=== PATIENT | female | born 1990 | race Caucasian/White ===

== ENCOUNTER 2018-04-07 06:04 | Day surgery (SDC) | payer OTHER ==
[2018-04-07] MEDS ORDERED: ceFAZolin 2 GM/50 ML 2 GM/50 ML BAG IV ONE (06:32)
[2018-04-07 06:48] LABS: HCG UR QUAL NEGATIVE
[2018-04-07] MEDS ORDERED: LACTATED RINGERS 1,000 ML IV ONE (06:59)
--- NOTE | 2018-04-07 07:55 | ANESTHESIA ---
Pre-Anesthesia VS, & Labs - Diagnosis right knee meniscus tear - Procedure right knee meniscus debridement, arthroscopic surgery Vital Signs: Temp Pulse Resp BP Pulse Ox 36.4 C L 79 18 120/75 98 04/07/18 06:35 04/07/18 06:35 04/07/18 06:35 04/07/18 06:35 04/07/18 06:35 Height 6 ft Weight (kg) 96.9 kg - NPO >8 hours - Is Patient ?: No Home Medications and Allergies Home Medications: Ambulatory Orders Norethindrone [Ortho Micronor] 0.35 mg PO 03/30/18 Pnv95/Ferrous Fumarate/FA [ Formula] 1 each PO DAILY 03/30/18 Norethindrone [Ortho Micronor] 0.35 mg PO 03/30/18 Pnv95/Ferrous Fumarate/FA [ Formula] 1 each PO DAILY 03/30/18 Allergies/Adverse Reactions: Allergies Allergy/AdvReac Type Severity Reaction Status Date / Time measles, mumps, and rubella Allergy Itching Verified 03/30/18 15:24 vaccine Anes History & Medical History - Anesthetic History Anesthesia Complications: reports: No previous complications - Medical History Cardiovascular: reports: None Pulmonary: reports: None Gastrointestinal: reports: None Urinary: reports: None Musculoskeletal: reports: Other Endocrine/Autoimmune: reports: None Skin: reports: Other Exam General: Alert Dental: WNL Mouth Opening: Greater than 4 Fingerbreadths Mallampati classification: I Thyromental Distance: greater than 6 cm Respiratory: Lungs clear Cardiovascular: Regular rate Mental/Cognitive Status: Alert/Oriented X3 Plan Anesthesia Type: General Consent for Procedure(s) Verified and Reviewed: Yes Code Status: Attempt Resuscitation ASA classification: 1-Healthy patient Is this case an emergency?: No
[2018-04-07] MEDS ORDERED: EPINEPHrine 1 MG/ML AMP ONE (07:56)
[2018-04-07] MEDS ORDERED: LIDOCAINE-MPF 2% 5 ML VIAL IM ONE (08:53)
[2018-04-07] MEDS ORDERED: HYDROmorphone 1 MG/ML CARPUJECT IVP ONE (08:53)
[2018-04-07] MEDS ORDERED: fentaNYL 100 MCG/2 ML VIAL IVP ONE (08:53)
[2018-04-07] MEDS ORDERED: DEXAMETHASONE 4 MG/ML VIAL IVP ONE (08:53)
[2018-04-07] MEDS ORDERED: PROPOFOL 200 MG/20 ML VIAL IVP ONE (08:53)
[2018-04-07] MEDS ORDERED: MIDAZOLAM 2 MG/2 ML VIAL IVP ONE (08:53)
[2018-04-07] MEDS ORDERED: ONDANSETRON 4 MG/2 ML VIAL IVP ONE (08:53)
[2018-04-07] MEDS ORDERED: KETOROLAC 30 MG/ML VIAL IVP ONE (08:53)
[2018-04-07] MEDS: BUPIVACAINE 0.25% PF 10 ML VIAL ONE ×2 (09:12→10:13)
[2018-04-07] MEDS ORDERED: oxyCODONE 5 MG TABLET PO PRN (10:33)
[2018-04-07] MEDS ORDERED: ONDANSETRON 4 MG/2 ML VIAL IVP PRN (10:33)
--- NOTE | 2018-04-07 10:37 | OPERATIVE REPORT ---
Operative Report - General Planned Procedure: Right knee arthroscopy, chondroplasty Pre-Op Diagnosis: Right knee lateral patellar chondromalacia Procedure Performed: Right Knee Arthroscopy, medial plica excision, shaving patellar chondroplasty, lateral femoral condyle chondroplasty, medial femoral condyle chondroplasty Post Op Diagnosis: Right knee patellar chondromalacia, focal femoral chondromalacia - Procedure Note Primary Surgeon: MADELIN CASTELLANO Estimated Blood Loss (mL): 5 - Other Other Information/Narrative: Indications for surgery this is a 27-year-old female who reports a history of right knee pain beginning in approximately 2014 or 2016She was scheduled for a right knee arthroscopy with shaving chondroplasty approximately 1 year ago however had to reschedule surgery due to . She recently delivered in late December 2017, and reports continued ongoing knee pain. She has failed nonoperative management. The risks, benefits, and alternatives were discussed. Risks included pain, bleeding, infection, damage to nearby structures, lack of symptom relief, implant complications, stiffness, need for further surgeries, DVT, PE, stroke, and even . He signed a written consent form. Right knee: 1. Patella: Diffuse grade 3 changes lateral facet, grade 2 to grade 3 changes medial facet 2. Trochlea: Normal 3. Medial Compartment: Focal 5 mm x 5 mm chondral lesion medial femoral condyle, medial meniscal root intact medial meniscus intact, tibial cartilage normal 4. Lateral Compartment: Focal 10 mm x 10 mm chondral lesion lateral femoral condyle, fraying of the lateral meniscal root, but intact. Lateral meniscus intact. Tibial cartilage normal 5. ACL and PCL: Normal COMPLICATIONS: none IMPLANTS: None Tourniquet: approximately 66 minutes, 250 mmHg, right thigh Procedure Details: The patient was met in the pre-operative hold area. We reviewed risks, benefits, and alternatives to surgery. Consent was signed. The patient verified the surgical site as the right knee. The patient then met with anesthesia and was brought back to the operating room. The patient was placed supine on the operating table. A general anesthetic was administered and LMA was placed. A well-padded tourniquet was placed on the right thigh. The right lower extremity was then prepped and draped in the usual sterile fashion. A surgical timeout was then performed. The correct patient, the correct procedure, and the correct surgical site were confirmed by everyone in the room. Perioperative antibiotics had been administered. After surgical timeout and administration of antibiotics the Escmarch was used to exsanguinate the right lower extremity and the tourniquet was raised. An 11 blade scalpel was used to make an anteromedial and anterolateral arthroscopic portal. A superolateral portal was made under direct visualization. The arthroscope was introduced into the knee and a diagnostic arthroscopy was performed with the above-stated findings. The arthroscopic sucker shaver was inserted into the knee and a chondroplasty of the medial femoral condyle, lateral femoral condyle, patella was performed. The cartilage was debrided to a stable rim. The arthroscopic instruments were then removed from the knee. The portals were closed with 3-0 Monocryl. 30 mL 0.25% Marcaine with epinephrine was injected into the periarticular soft tissues. The incisions were dressed with Xeroform gauze, cotton gauze, and an Quentin wrap. An ice pack was placed on the knee. The tourniquet was lowered. The surgical drapes were removed. The patient was awoken from anesthesia, extubated, transferred to the hospital bed, and taken to the PACU for recovery in good condition. Postoperative plan: 1. Discharge home from the same day surgery facility once the patient has met discharge criteria. 2. Advance weightbearing as tolerated, range of motion as tolerated, and wean from crutches as tolerated. 3. Return to clinic in 5-7 days for wound check. 4. Allow advancement of activities as tolerated with full clearance for all activities anticipated in 6-8 weeks postoperatively.
[2018-04-07 12:24] VITALS: BP 107/68
== END 2018-04-07 06:05 | disposition home or self-care (01) ==
LOC: SDS 06:04
PROVIDERS: ATTEND Orthopaedic Surgery
PROC: 0SBC4ZZ Excision of Right Knee Joint, Percutaneous Endoscopic Approach (ICD-10-PCS; principal; 2018-04-07 07:30)
DX: M94.261 Chondromalacia, right knee (principal)
CPT/HCPCS: 29877; 81025; A9270; J0690; J1170; J7120

== ENCOUNTER 2018-06-09 07:18 | Emergency (ER) | payer OTHER ==
[2018-06-09 07:28] VITALS: BP 141/82
--- NOTE | 2018-06-09 08:08 | ED Physician Documentation ---
PD HPI URI - Stated complaint Stated Complaint: FLU LIKE SYMPTOMS - Chief complaint Chief Complaint: Fever - History obtained from History obtained from: Patient - History of Present Illness Timing - onset: How many weeks ago (2) Timing duration: Weeks (2) Timing details: Gradual onset Pain level max: 3 Pain level now: 2 Associated symptoms: Fever, Chills, Nasal congestion, Rhinorrhea, Dry cough. No: Hemoptysis, Chest pain, Dyspnea, NVD Contributing factors: Sick contact Improves by: Rest Worsened by: Activity, Breathing Recently seen: Not recently seen - Additional information Additional information: 28-year-old female presents to the emergency department stating that she was sick approximately 2 weeks ago, lasted about a week, and then became ill again starting last night. Fevers, chills, coughing, nasal congestion. Nothing makes it better or worse. She does breast-feed her 4-1/2-month-old child Review of Systems Constitutional: reports: Fever, Chills Ears: denies: Ear pain Nose: reports: Rhinorrhea / runny nose, Congestion Skin: denies: Rash Musculoskeletal: denies: Neck pain, Back pain Neurologic: denies: Headache PD PAST MEDICAL HISTORY - Past Medical History Past Medical History: Yes Cardiovascular: None Respiratory: None Endocrine/Autoimmune: None GI: None : None HEENT: None Psych: None Musculoskeletal: Other Derm: Other - Past Surgical History Past Surgical History: Yes Ortho: Other - Present Medications Home Medications: Ambulatory Orders Medication Instructions Recorded Confirmed Pnv95/Ferrous Fumarate/FA 1 each PO DAILY 03/30/18 06/09/18 [ Formula] Benzonatate [Tessalon Perle] 100 - 200 mg PO TID PRN #30 capsule 06/09/18 Cetirizine HCl/Pseudoephedrine 1 each PO BID PRN #30 tab.er.12h 06/09/18 [Zyrtec-D Tablet] - Allergies Allergies/Adverse Reactions: Allergies Allergy/AdvReac Type Severity Reaction Status Date / Time measles, mumps, and rubella Allergy Edema Verified 06/09/18 07:28 vaccine - Social History Does the pt smoke?: No Smoking Status: Never smoker Does the pt drink ETOH?: No Does the pt have substance abuse?: No - Immunizations Immunizations are current?: Yes PD ED PE NORMAL - Vitals Vital signs reviewed: Yes - General General: Alert and oriented X 3, No acute distress, Well developed/nourished - HEENT HEENT: PERRL, Ears normal, Moist mucous membranes, Pharynx benign - Neck Neck: Supple, no meningeal sign - Cardiac Cardiac: RRR, Strong equal pulses - Respiratory Respiratory: No respiratory distress, Clear bilaterally - Abdomen Abdomen: Soft, Non tender, Non distended - Derm Derm: Warm and dry, No rash - Extremities Extremities: No edema - Neuro Neuro: Alert and oriented X 3 - Psych Psych: Normal mood, Normal affect Results - Vitals Vitals: Vital Signs - 24 hr 06/09/18 07:25 Temperature 36.9 C Heart Rate 106 H Respiratory 16 Rate Blood Pressure 141/82 H O2 Saturation 99 Oxygen O2 Source Room air - Rads (name of study) Chest x-ray Radiology: Prelim report reviewed, EMP read contemporaneously, See rad report (normal) PD MEDICAL DECISION MAKING - ED course Complexity details: reviewed results, re-evaluated patient, considered differential, d/w family ED course: 28-year-old female presents to the emergency department with cough congestion and fever starting again last night. Concern for possible post influenza pneumonia, therefore chest x-ray was obtained. No evidence of pneumonia on chest x-ray. We will continue supportive care and follow-up closely with her doctor. She is well-appearing, nontoxic. No evidence of sepsis. Patient counseled regarding signs and symptoms for which I believe and urgent re- evaluation would be necessary. Patient with good understanding of and agreement to plan and is comfortable going home at this time This document was made in part using voice recognition software. While efforts are made to proofread this document, sound alike and grammatical errors may occur. Departure - Departure Disposition: 01 Home, Self Care Clinical Impression: Viral URI with cough Condition: Good Instructions: ED URI Viral Follow-Up: Edwar Cary MD [Primary Care Provider] - Within 1 week Prescriptions: Benzonatate [Tessalon Perle] 100 - 200 mg PO TID PRN #30 capsule PRN Reason: Cough Cetirizine HCl/Pseudoephedrine [Zyrtec-D Tablet] 1 each PO BID PRN #30 tab.er.12h PRN Reason: nasal congestion Comments: Only use the decongestants when necessary as they can cause a decrease in your breastmilk supply. You can also try saline nasal rinses, cough drops etc. at home. There is no pneumonia on your chest x-ray today. Return if you worsen. You should avoid breast-feeding while taking the Tessalon or Zyrtec-D. I would use your stored breastmilk for this. Forms: Activity restrictions
--- NOTE | 2018-06-09 08:27 | XRAY Report ---
Reason: cough Procedure Date: 06/09/2018 Accession Number: [id number] / [id number] Procedure: XR - Chest 2 View X-Ray CPT Code: 67281 FULL RESULT: EXAM: CHEST RADIOGRAPHY EXAM DATE: 06/09/2018 08:07 AM. CLINICAL HISTORY: Cough. COMPARISON: None. TECHNIQUE: 2 views. FINDINGS: Lungs/Pleura: No focal opacities evident. No pleural effusion. No pneumothorax. Normal volumes. Mediastinum: Heart and mediastinal contours are unremarkable. Other: None. IMPRESSION: Normal 2-view chest radiography. [facility]
== END 2018-06-09 08:43 | disposition home or self-care (01) ==
LOC: ED 07:18
DX: J06.9 Acute upper respiratory infection, unspecified (principal)
CPT/HCPCS: 71046; 99283

== ENCOUNTER 2019-09-21 08:10 | Outpatient (CLI) | payer OTHER | END 2019-09-21 23:59 | disposition home or self-care (01) | LOC: LAB.R 08:10 | PROVIDERS: ATTEND Podiatrist | DX: L03.031 Cellulitis of right toe (principal) | CPT/HCPCS: 87070; 87181; 87205 ==